=== PATIENT | male | born 1955 | race Caucasian/White ===

== ENCOUNTER → 2016-06-23 | Outpatient (CLI) | payer BC ==
[~2016-06-23] MED LIST: LIQUID POLIBAR PLUS 105% w/v 1900ML BTL As Ordered ONE
--- NOTE | 2016-06-23 17:48 | REP ---
BARIUM ENEMA AIR CONTRAST: The procedure was performed under the direct supervision of Dr. Landry. The images were reviewed with Dr. Landry. The it senior analyst film shows no organomegaly or pathological masses. The intestinal gas pattern is nonspecific. There are coils in the abdomen consistent with the patient's history of inguinal hernia repair. Liquid barium and air were instilled into the colon in a retrograde flow of the barium and air mixture. The colon is normal in position and contour. Haustration is unremarkable throughout. The colonic mucosal pattern is normal in course and caliber. There are no annular constricting lesions or polypoid masses identified. There is free flow of contrast to the cecum. The appendix is visualized. There is reflux into the terminal ileum. IMPRESSION: Essentially unremarkable double contrast barium enema. 2 minutes and 13 seconds of fluoroscopic time was utilized for this procedure. Reviewed by GRETCHEN Pratt 06/24/2016 01:47 PEdited and Signed by Dell Landry MD 06/24/2016 07:22 P
== END ==
LOC: M RAD 09:47
PROVIDERS: ATTEND Family Medicine
DX: R10.9 Unspecified abdominal pain (principal)

== ENCOUNTER → 2016-06-30 | Outpatient (CLI) | payer BC ==
[~2016-06-30] MED LIST changes: +E-Z-PAQUE 96% w/w SUSP 176GM BTL As Ordered ONE; -LIQUID POLIBAR PLUS 105% w/v 1900ML BTL As Ordered ONE
--- NOTE | 2016-06-30 14:19 | REP ---
KUB: Single view. History: Right lower abdominal pain. 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 Findings: Street Engineer view of the abdomen demonstrates high-density barium in the right lower quadrant. This may be in the cecum or distal small bowel. It is apparently retained from barium enema contrast given on June 23, 2016. Because of this finding, the small bowel follow-through study was rescheduled. Signed by Dell Landry MD 06/30/2016 04:33 P
== END ==
LOC: M RAD 08:44
PROVIDERS: ATTEND Family Medicine
DX: R10.9 Unspecified abdominal pain (principal)

== ENCOUNTER → 2016-07-07 | Outpatient (CLI) | payer BC ==
--- NOTE | 2016-07-07 11:15 | REP ---
Clinical: Lower abdominal pain Findings: Interface Engineer film of the abdomen is unremarkable. Single contrast small bowel follow-through examination demonstrates normal motility, peristalsis, and mucosal outline of the duodenum, jejunum, and ileum including terminal ileum, ileocecal valve and cecum. Total fluoroscopic time 48 seconds Impression: Normal small bowel follow-through examination. Signed by Rommel Damon MD 07/07/2016 11:07 A
== END ==
LOC: M RAD 08:43
PROVIDERS: ATTEND Family Medicine
DX: R10.9 Unspecified abdominal pain (principal)

== ENCOUNTER → 2017-04-26 | Outpatient (REF) | payer BC | LOC: M SFHCPLAZ 14:42 | PROVIDERS: ATTEND Family Medicine | DX: R39.11 Hesitancy of micturition (principal); Z87.891 Personal history of nicotine dependence | CPT/HCPCS: 36415; 80061; 83036; G0103 ==

== ENCOUNTER → 2017-05-03 | Outpatient (CLI) | payer BC ==
--- NOTE | 2017-05-03 08:36 | REP ---
Abdominal aorta ultrasound: Abdominal Aortic Measurements are as follows: Proximal 2.2 cm AP 1.9 cm TRV Renal Artery Level 1.7 cm AP 2.2 cm TRV Mid Aorta 1.7 cm AP 1.9 cm TRV Distal Aorta 1.5 cm AP 1.6 cm TRV R Iliac Artery 0.92 cm AP 0.79 cm TRV L Iliac Artery 0.89 cm AP 0.69 cm TRV There is no abdominal aortic aneurysm. Signed by Minesh Keller MD 05/03/2017 08:28 A
== END ==
LOC: M RAD 07:58
PROVIDERS: ATTEND Family Medicine
DX: Z87.891 Personal history of nicotine dependence (principal)

== ENCOUNTER → 2018-05-03 | Outpatient (CLI) | payer BC ==
[~2018-05-03] MED LIST changes: -E-Z-PAQUE 96% w/w SUSP 176GM BTL As Ordered ONE; +GASTROGRAFIN SOLUTION 30ML (Q9963) As Ordered; +ISOVUE-370 76% 100ML VIAL (Q9967) As Ordered
== END ==
LOC: M RAD 08:04
DX: R10.11 Right upper quadrant pain (principal); K40.90 Unilateral inguinal hernia, without obstruction or gangrene, not specified as recurrent
CPT/HCPCS: Q9963

== ENCOUNTER → 2019-03-22 | Outpatient (REF) | LOC: M LAB 12:08 | PROVIDERS: ATTEND Nurse Practitioner Adult Health | DX: Z02.1 Encounter for pre-employment examination (principal) ==

== ENCOUNTER → 2019-05-28 | Outpatient (CLI) | payer BC ==
[2019-05-28 09:41] LABS: HEMOGLOBIN A1c 5.3 %
[2019-05-28 09:59] LABS: ALBUMIN 3.7 GM/DL (3.2-5.2); ALT/SGPT 94 U/L (12-78); BILIRUBIN,TOTAL 0.7 MG/DL (0.2-1.0); BLOOD UREA NITROGEN 19 MG/DL (7-18); CALCIUM LEVEL 9.1 MG/DL (8.8-10.2); CARBON DIOXIDE LEVEL 29 MEQ/L (21-32); CHLORIDE LEVEL 104 MEQ/L (98-107); CHOLESTEROL LEVEL 145 MG/DL (<200); CHOLESTEROL RISK RATIO 3.085 (<5); FREE T4 1.05 NG/DL (0.76-1.46); GLOMERULAR FILTRATION RATE > 60.0 (>49); GLUCOSE, FASTING 94 MG/DL (70-100); HDL CHOLESTEROL 47 MG/DL (>40); LDL CHOLESTEROL 82 MG/DL (<100); NON-HDL-C 98 MG/DL; POTASSIUM SERUM 4.1 MEQ/L (3.5-5.1); SODIUM LEVEL 140 MEQ/L (136-145); TOTAL PROTEIN 7.5 GM/DL (6.4-8.2); TRIGLYCERIDES LEVEL 78 MG/DL (<150)
== END ==
LOC: M LAB 08:51
PROVIDERS: ATTEND Nurse Practitioner Family
DX: F41.1 Generalized anxiety disorder (principal); Z13.220 Encounter for screening for lipoid disorders; Z12.5 Encounter for screening for malignant neoplasm of prostate; Z13.1 Encounter for screening for diabetes mellitus
CPT/HCPCS: 36415; 80053; 80061; 83036; 84439; 84443; G0103

== ENCOUNTER → 2019-05-31 | Outpatient (REF) | payer BC ==
[2019-05-31 16:28] LABS: ALBUMIN 4.2 GM/DL (3.2-5.2); ALT/SGPT 114 U/L (12-78); BILIRUBIN,DIRECT 0.2 MG/DL (0.0-0.2); BILIRUBIN,TOTAL 0.6 MG/DL (0.2-1.0); RHEUMATOID FACTOR QUANT < 10.0 IU/ML (<15.0); TOTAL PROTEIN 8.1 GM/DL (6.4-8.2)
[2019-05-31 16:55] LABS: HEPATITIS B SURFACE ANTIGEN NEGATIVE (NEGATIVE)
[2019-05-31 17:23] LABS: HEPATITIS B CORE ANTIBODY IGM NEGATIVE (NEGATIVE)
[2019-05-31 17:25] LABS: HEPATITIS A ANTIBODY IGM NEGATIVE (NEGATIVE)
[2019-05-31 18:01] LABS: HEPATITIS C VIRUS ABY INDEX > 11.0 INDEX (<0.8)
== END ==
LOC: M SFHCPLAZ 13:45
PROVIDERS: ATTEND Nurse Practitioner Family
DX: R94.5 Abnormal results of liver function studies (principal); M25.50 Pain in unspecified joint

== ENCOUNTER → 2019-06-05 | Outpatient (CLI) | payer BC ==
[2019-06-05 13:43] LABS: ALBUMIN 4.3 GM/DL (3.2-5.2); ALT/SGPT 89 U/L (12-78); BILIRUBIN,TOTAL 0.6 MG/DL (0.2-1.0); BLOOD UREA NITROGEN 21 MG/DL (7-18); CALCIUM LEVEL 9.1 MG/DL (8.8-10.2); CARBON DIOXIDE LEVEL 25 MEQ/L (21-32); CHLORIDE LEVEL 106 MEQ/L (98-107); GLOMERULAR FILTRATION RATE > 60.0 (>49); GLUCOSE, FASTING 100 MG/DL (70-100); POTASSIUM SERUM 4.1 MEQ/L (3.5-5.1); SODIUM LEVEL 139 MEQ/L (136-145); TOTAL PROTEIN 7.9 GM/DL (6.4-8.2)
[2019-06-05 13:44] LABS: HEMATOCRIT 47.1 % (42.0-52.0); HEMOGLOBIN 15.4 g/dl (13.5-17.5); MEAN CORPUSCULAR HEMOGLOBIN 30.5 pg (27.0-33.0); MEAN CORPUSCULAR HGB CONC 32.7 g/dl (32.0-36.5); MEAN CORPUSCULAR VOLUME 93.3 fl (80.0-96.0); PLATELET COUNT, AUTOMATED 231 10^3/uL (150-450); RED BLOOD COUNT 5.05 10^6/uL (4.30-6.10); WHITE BLOOD COUNT 5.3 10^3/uL (4.0-10.0)
[2019-06-05 14:02] LABS: HEPATITIS B SURFACE ANTIGEN NEGATIVE (NEGATIVE)
[2019-06-05 14:03] LABS: HEPATITIS B SURFACE ANTIBODY POSITIVE (POSITIVE)
[2019-06-05 14:31] LABS: HIV 1&2 SCREEN CENTAUR NEGATIVE (NEGATIVE)
== END ==
LOC: M PLALAB 11:07
PROVIDERS: ATTEND Nurse Practitioner Family
DX: R76.8 Other specified abnormal immunological findings in serum (principal)

== ENCOUNTER → 2019-08-22 | Outpatient (REF) | payer BC ==
[2019-08-22 14:16] LABS: BILIRUBIN,DIRECT 0.2 MG/DL (0.0-0.2); BILIRUBIN,TOTAL 0.8 MG/DL (0.2-1.0); TOTAL PROTEIN 7.6 GM/DL (6.4-8.2)
== END ==
LOC: M SFHCPLAZ 11:23
PROVIDERS: ATTEND Internal Medicine Infectious Disease
DX: B18.2 Chronic viral hepatitis C (principal)

== ENCOUNTER → 2019-11-30 | Outpatient (CLI) | payer BC | LOC: M LABSMTC 09:43 | PROVIDERS: ATTEND Pediatrics | DX: Z11.59 Encounter for screening for other viral diseases (principal) | CPT/HCPCS: C9803; U0002 ==

== ENCOUNTER → 2020-01-13 | Outpatient (CLI) | payer BC ==
[2020-01-13 17:06] LABS: ALBUMIN 4.2 GM/DL (3.2-5.2); ALT/SGPT 24 U/L (12-78); BILIRUBIN,TOTAL 0.7 MG/DL (0.2-1.0); BLOOD UREA NITROGEN 23 MG/DL (7-18); CALCIUM LEVEL 9.5 MG/DL (8.8-10.2); CARBON DIOXIDE LEVEL 30 MEQ/L (21-32); CHLORIDE LEVEL 106 MEQ/L (98-107); CREATININE FOR GFR 0.85 MG/DL (0.70-1.30); GLOMERULAR FILTRATION RATE > 60.0 (>49); GLUCOSE, FASTING 91 MG/DL (70-100); POTASSIUM SERUM 4.1 MEQ/L (3.5-5.1); SODIUM LEVEL 139 MEQ/L (136-145); TOTAL PROTEIN 7.8 GM/DL (6.4-8.2)
[2020-01-16 23:07] LABS: HEPATITIS C QUANTITATION HCV Not Detected IU/mL (.)
== END ==
LOC: M PLALAB 10:36
PROVIDERS: ATTEND Internal Medicine Infectious Disease
DX: B18.2 Chronic viral hepatitis C (principal)

== ENCOUNTER → 2020-02-21 | Outpatient (REF) | payer BC ==
[2020-02-24 17:07] LABS: Lyme Disease IgG/IgM Antibodie <0.91 ISR (0.00-0.90); Lyme Disease IgM Ab Quantitati <0.80 index (0.00-0.79)
== END ==
LOC: M SFHCPLAZ 14:42
PROVIDERS: ATTEND Nurse Practitioner Family
DX: M25.50 Pain in unspecified joint (principal)

== ENCOUNTER → 2020-04-07 | Outpatient (CLI) | payer SELFPAY | LOC: M LABSMTC 11:30 | PROVIDERS: ATTEND Pediatrics | DX: Z20.828 Contact with and (suspected) exposure to other viral communicable diseases (principal) ==

== ENCOUNTER → 2020-04-28 | Outpatient (CLI) | payer SELFPAY ==
[2020-04-28 15:11] LABS: ALBUMIN 3.9 GM/DL (3.2-5.2); BILIRUBIN,DIRECT 0.1 MG/DL (0.0-0.2); BILIRUBIN,TOTAL 0.6 MG/DL (0.2-1.0)
[2020-05-01 02:07] LABS: HEPATITIS C QUANTITATION HCV Not Detected IU/mL (.)
== END ==
LOC: M PLALAB 09:29
PROVIDERS: ATTEND Internal Medicine Infectious Disease
DX: B18.2 Chronic viral hepatitis C (principal)

== ENCOUNTER → 2020-06-11 | Outpatient (CLI) | payer BC ==
--- NOTE | 2020-06-11 15:41 | REP ---
INDICATION: PAIN IN RIGHT CALF COMPARISON: None. TECHNIQUE: Real time compression and duplex Doppler interrogation of the right lower extremity deep venous system is performed. FINDINGS: The right common femoral, superficial femoral and popliteal veins are fully compressible with transducer pressure and demonstrate normal spontaneous and phasic flow, without evidence of deep venous thrombosis. IMPRESSION: No evidence of deep venous thrombosis of the right lower extremity femoral popliteal venous system. <Electronically signed by Minesh Pena > 06/11/20 1530
== END ==
LOC: M RAD 12:35
PROVIDERS: ATTEND Physician Assistant
DX: M79.661 Pain in right lower leg (principal)

== ENCOUNTER → 2020-06-26 | Outpatient (REF) | payer BC ==
[2020-06-26 11:00] LABS: ALT/SGPT 30 U/L (12-78); BILIRUBIN,TOTAL 0.6 MG/DL (0.2-1.0); BLOOD UREA NITROGEN 25 MG/DL (7-18); CALCIUM LEVEL 9.5 MG/DL (8.8-10.2); CARBON DIOXIDE LEVEL 33 MEQ/L (21-32); CHLORIDE LEVEL 104 MEQ/L (98-107); CHOLESTEROL LEVEL 163 MG/DL (<200); CHOLESTEROL RISK RATIO 3.196 (<5); CREATININE FOR GFR 0.88 MG/DL (0.70-1.30); GLOMERULAR FILTRATION RATE > 60.0 (>49); GLUCOSE, FASTING 90 MG/DL (70-100); HDL CHOLESTEROL 51 MG/DL (>40); LDL CHOLESTEROL 99 MG/DL (<100); NON-HDL-C 112 MG/DL; POTASSIUM SERUM 4.4 MEQ/L (3.5-5.1); SODIUM LEVEL 143 MEQ/L (136-145); TOTAL PROTEIN 7.3 GM/DL (6.4-8.2); TRIGLYCERIDES LEVEL 67 MG/DL (<150)
== END ==
LOC: M PLALAB 08:19
PROVIDERS: ATTEND Family Medicine
DX: E78.00 Pure hypercholesterolemia, unspecified (principal); Z12.5 Encounter for screening for malignant neoplasm of prostate

== ENCOUNTER → 2020-11-24 | Outpatient (CLI) | payer BC ==
--- NOTE | 2020-11-25 14:06 | SLEEPCENT ---
NOCTURNAL POLYSOMNOGRAPHY DATE: 11/24/2020 ORDERED BY: CLYDE Cali Nocturnal polysomnography was performed for evaluation of sleep physiology in this patient with a history of mild obstructive sleep apnea and persistent excessive somnolence. 7 hours and 31 minutes of data were reviewed. There were 296 minutes of sleep identified. Sleep latency was prolonged at 57 minutes. REM latency was normal at 71 minutes. Sleep architecture was fair with some fragmentation. There were four REM cycles noted. Overall sleep efficiency was 66.4% due to periods of wake after 2 and 3:30 a.m. The electrocardiogram showed a sinus rhythm with an average heart rate of 60 beats per minute. EEG showed reasonably normal waveforms for wake and sleep. There were only 18 respiratory events identified of 10 seconds in duration or greater for an apnea-hypopnea index of 3.6. The events that were seen were not stage related nor postural related. Arousals from respiratory events when arousals from snoring were included occurred 5.3 times per hour. There were no oxygen desaturations below 90% seen. Some activity was seen in the limb leads with only one train of 30 events. Limb movement arousal index was borderline at 6.3. IMPRESSION: Equivocal nocturnal polysomnography with respiratory patterning and snoring. RECOMMENDATION: Interventions to optimize upper air way tone may be helpful with the snoring problem.
== END ==
LOC: M SLEEP 20:00
PROVIDERS: ATTEND Nurse Practitioner Family
DX: R06.83 Snoring (principal)

== ENCOUNTER 2021-06-07 15:39 | Emergency (ER) | payer BC ==
[~2021-06-07] VITALS: Ht 165.1 cm; Wt 61.4 kg
[2021-06-07 16:06] VITALS: BP 132/75
[2021-06-07] MEDS ORDERED: AUGM875T28 PO (17:05)
[2021-06-07] MEDS ORDERED: BOOSTRIX/ADACEL VACCINE (DIPHTH/PERTUSS/ACELL/TETANUS) 0.5ML SYR IM ONE (17:05)
== END 2021-06-07 17:49 | disposition home or self-care (01) ==
LOC: M ED 15:39
DX: S81.852A Open bite, left lower leg, initial encounter (principal); W54.0XXA Bitten by dog, initial encounter; Y92.019 Unspecified place in single-family (private) house as the place of occurrence of the external cause; Y93.9 Activity, unspecified; Y99.9 Unspecified external cause status

== ENCOUNTER → 2022-10-24 | Outpatient (CLI) | payer BC ==
[~2022-10-24] MED LIST changes: +AUGM875T28 PO; -GASTROGRAFIN SOLUTION 30ML (Q9963) As Ordered; -ISOVUE-370 76% 100ML VIAL (Q9967) As Ordered
[2022-10-24 15:02] LABS: ALBUMIN 4.2 G/DL (3.2-5.2); ALKALINE PHOSPHATASE 72 U/L (46-116); ALT/SGPT 18 U/L (7.0-40); AST/SGOT 16 U/L (<34); BILIRUBIN,TOTAL 0.6 MG/DL (0.3-1.2); BLOOD UREA NITROGEN 13 MG/DL (9-23); C REACTIVE PROTEIN QUANTITATIV < 0.40 MG/DL (<1.0); CALCIUM LEVEL 8.8 MG/DL (8.3-10.6); CARBON DIOXIDE LEVEL 30 MMOL/L (20-31); CHLORIDE LEVEL 104 MMOL/L (98-107); CHOLESTEROL LEVEL 148 MG/DL (<200); CHOLESTEROL RISK RATIO 2.77 (<5); CREATININE FOR GFR 0.85 MG/DL (0.70-1.30); FREE T4 1.05 NG/DL (0.89-1.76); GLOMERULAR FILTRATION RATE > 60.0 (>49); GLUCOSE, FASTING 92 MG/DL (74-106); HDL CHOLESTEROL 53.4 MG/DL (>40); HEMATOCRIT 46.2 % (42.0-52.0); HEMOGLOBIN 15.5 g/dl (13.5-17.5); LDL CHOLESTEROL 74.8 MG/DL (<100); MEAN CORPUSCULAR HEMOGLOBIN 31.3 pg (27.0-33.0); MEAN CORPUSCULAR HGB CONC 33.5 g/dl (32.0-36.5); MEAN CORPUSCULAR VOLUME 93.3 fl (80.0-96.0); NON-HDL-C 94.6 MG/DL; PLATELET COUNT, AUTOMATED 336 10^3/uL (150-450); POTASSIUM SERUM 4.1 MMOL/L (3.5-5.1); RED BLOOD COUNT 4.95 10^6/uL (4.30-6.10); SODIUM LEVEL 139 MMOL/L (136-145); THYROID STIMULATING HORMONE 1.861 uIU/ML (0.55-4.78); TOTAL 25(OH) VITAMIN D 45.3 NG/ML (20.0-100.0); TOTAL PROTEIN 7.1 G/DL (5.7-8.2); TRIGLYCERIDES LEVEL 99 MG/DL (<150); VITAMIN B12 LEVEL 648 PG/ML (211-911); WHITE BLOOD COUNT 7.2 10^3/uL (4.0-10.0)
[2022-10-24 15:13] LABS: CREATININE, URINE 12.7 MG/DL; MALB URINE SIEMENS < 3.0 MG/L; MAU/CREAT RATIO 23.6 MCG/MG (0.0-30.0)
[2022-10-24 15:32] LABS: HEMOGLOBIN A1c 5.1 % (4.0-6.0)
== END ==
LOC: M PLALAB 11:05
PROVIDERS: ATTEND Internal Medicine Hematology
DX: Z13.1 Encounter for screening for diabetes mellitus (principal); Z12.5 Encounter for screening for malignant neoplasm of prostate
CPT/HCPCS: 36415; 80053; 80061; 82043; 82306; 82607; 83036; 83525; 84439; 84443; 85027; 86140; G0103

== ENCOUNTER → 2023-01-30 | Outpatient (CLI) | payer BC, SELFPAY | LOC: M ONCM 16:56 | PROVIDERS: ATTEND General Practice | DX: Z12.5 Encounter for screening for malignant neoplasm of prostate (principal) ==

== ENCOUNTER → 2023-06-08 | Outpatient (CLI) | payer OTHER, BC | LOC: M RAD 12:33 | PROVIDERS: ATTEND Surgery | DX: R10.31 Right lower quadrant pain (principal) ==

== ENCOUNTER → 2023-08-14 | Outpatient (CLI) | payer BC | LOC: M PLAIMG 11:05 | PROVIDERS: ATTEND Nurse Practitioner Family | DX: M25.511 Pain in right shoulder (principal); M19.011 Primary osteoarthritis, right shoulder ==

== ENCOUNTER → 2023-09-08 | Outpatient (REF) | LOC: M EMP 13:31 | PROVIDERS: ATTEND Family Medicine | DX: Z01.89 Encounter for other specified special examinations (principal) ==

== ENCOUNTER 2023-09-13 10:39 | Outpatient (RCR) | payer BC | END 2023-09-19 | LOC: M PT 10:39 | PROVIDERS: ATTEND Orthopaedic Surgery | DX: M25.511 Pain in right shoulder (principal) ==

== ENCOUNTER 2023-09-27 10:39 | Outpatient (RCR) | payer BC | END 2023-10-20 | LOC: M PT 10:39 | PROVIDERS: ATTEND Orthopaedic Surgery | DX: M25.511 Pain in right shoulder (principal) ==

== ENCOUNTER → 2023-10-03 | Outpatient (CLI) | payer BC ==
[2023-10-03 13:46] LABS: BASO # 0.1 10^3/uL (0.0-0.2); BASO % 0.6 % (0.0-1.0); EOS # 0.1 10^3/uL (0.0-0.5); EOS % 0.6 % (0.0-3.0); HEMATOCRIT 43.7 % (42.0-52.0); HEMOGLOBIN 14.8 g/dl (13.5-17.5); LYMPH # 0.5 10^3/uL (1.5-5.0); LYMPH % 5.2 % (24.0-44.0); MEAN CORPUSCULAR HEMOGLOBIN 31.2 pg (27.0-33.0); MEAN CORPUSCULAR HGB CONC 33.9 g/dl (32.0-36.5); MEAN CORPUSCULAR VOLUME 92.2 fl (80.0-96.0); MONO % 9.8 % (2.0-8.0); NEUTROPHILS # 8.4 10^3/uL (1.5-8.5); NEUTROPHILS % 83.3 % (36.0-66.0); PLATELET COUNT, AUTOMATED 329 10^3/uL (150-450); RED BLOOD COUNT 4.74 10^6/uL (4.30-6.10); WHITE BLOOD COUNT 10.1 10^3/uL (4.0-10.0)
[2023-10-03 13:50] LABS: ALBUMIN 4.1 G/DL (3.2-5.2); ALKALINE PHOSPHATASE 68 U/L (46-116); ALT/SGPT 22 U/L (7.0-40); AST/SGOT 26 U/L (<34); BILIRUBIN,TOTAL 1.3 MG/DL (0.3-1.2); BLOOD UREA NITROGEN 15 MG/DL (9-23); CALCIUM LEVEL 9.4 MG/DL (8.3-10.6); CARBON DIOXIDE LEVEL 28 MMOL/L (20-31); CHLORIDE LEVEL 103 MMOL/L (98-107); CHOLESTEROL LEVEL 155 MG/DL (<200); CHOLESTEROL RISK RATIO 2.81 (<5); CREATININE FOR GFR 0.86 MG/DL (0.70-1.30); GLOMERULAR FILTRATION RATE > 60.0 (>49); GLUCOSE, FASTING 100 MG/DL (74-106); HDL CHOLESTEROL 55.1 MG/DL (>40); LDL CHOLESTEROL 90.3 MG/DL (<100); NON-HDL-C 99.9 MG/DL; POTASSIUM SERUM 4.2 MMOL/L (3.5-5.1); PSA SCREENING 1.52 NG/ML (< 4.00); SODIUM LEVEL 138 MMOL/L (136-145); TOTAL PROTEIN 6.9 G/DL (5.7-8.2); TRIGLYCERIDES LEVEL 48 MG/DL (<150)
[2023-10-03 13:52] LABS: VITAMIN B12 LEVEL 704 PG/ML (211-911)
[2023-10-03 13:53] LABS: THYROID STIMULATING HORMONE 0.783 uIU/ML (0.55-4.78); TOTAL 25(OH) VITAMIN D 28.9 NG/ML (20.0-100.0)
[2023-10-03 14:06] LABS: CREATININE, URINE 117.5 MG/DL
[2023-10-03 14:07] LABS: MAU/CREAT RATIO 2.5 MCG/MG (0.0-30.0)
== END ==
LOC: M PLALAB 09:30
PROVIDERS: ATTEND Internal Medicine Hematology
DX: Z13.1 Encounter for screening for diabetes mellitus (principal); Z12.5 Encounter for screening for malignant neoplasm of prostate
CPT/HCPCS: 36415; 80053; 80061; 82043; 82306; 82607; 83036; 83525; 84439; 84443; 85025; 86140; G0103

== ENCOUNTER 2023-11-08 07:21 | Day surgery (SDC) | payer BC ==
[~2023-11-08] VITALS: Ht 165.1 cm; Wt 57.2 kg
[~2023-11-08 07:21] MED LIST changes: +NS 1,000 ML IV ONE; +propofoL 200 MG/20 ML VIAL As Ordered ONE
[2023-11-08] MEDS ORDERED: LACTATED RINGER'S 500 ML IV ONE (08:05)
[2023-11-08 08:41] VITALS: TEMP 98.1
[2023-11-08 08:58] VITALS: BP 131/75; O2SAT 98
== END 2023-11-08 09:07 | disposition home or self-care (01) ==
LOC: M OPP 07:21
PROVIDERS: ATTEND Surgery
DX: Z12.11 Encounter for screening for malignant neoplasm of colon (principal); Z80.0 Family history of malignant neoplasm of digestive organs; K64.0 First degree hemorrhoids; K57.30 Diverticulosis of large intestine without perforation or abscess without bleeding; Z86.19 Personal history of other infectious and parasitic diseases; Z87.891 Personal history of nicotine dependence

== ENCOUNTER → 2024-01-11 | Outpatient (CLI) | payer BC ==
[~2024-01-11] MED LIST changes: -NS 1,000 ML IV ONE; -propofoL 200 MG/20 ML VIAL As Ordered ONE
[2024-01-11 10:32] LABS: HEMATOCRIT 44.7 % (42.0-52.0); HEMOGLOBIN 15.1 g/dl (13.5-17.5); MEAN CORPUSCULAR HEMOGLOBIN 31.3 pg (27.0-33.0); MEAN CORPUSCULAR HGB CONC 33.8 g/dl (32.0-36.5); MEAN CORPUSCULAR VOLUME 92.7 fl (80.0-96.0); PLATELET COUNT, AUTOMATED 309 10^3/uL (150-450); RED BLOOD COUNT 4.82 10^6/uL (4.30-6.10); WHITE BLOOD COUNT 6.3 10^3/uL (4.0-10.0)
[2024-01-11 11:03] LABS: C REACTIVE PROTEIN QUANTITATIV < 0.40 MG/DL (<1.0)
[2024-01-11 11:05] LABS: ALBUMIN 4.2 G/DL (3.2-5.2); ALKALINE PHOSPHATASE 62 U/L (46-116); ALT/SGPT 18 U/L (7.0-40); AST/SGOT 20 U/L (<34); BILIRUBIN,DIRECT 0.2 MG/DL (<0.4); BILIRUBIN,TOTAL 0.7 MG/DL (0.3-1.2)
== END ==
LOC: M PLALAB 08:55
PROVIDERS: ATTEND Internal Medicine Hematology
DX: B18.2 Chronic viral hepatitis C (principal)

== ENCOUNTER → 2024-02-08 | Outpatient (CLI) | payer BC | LOC: M RAD 08:58 | PROVIDERS: ATTEND Internal Medicine Hematology | DX: B18.2 Chronic viral hepatitis C (principal) ==

== ENCOUNTER → 2024-02-22 | Outpatient (CLI) | payer BC | LOC: M PLAIMG 09:56 | PROVIDERS: ATTEND Internal Medicine Hematology | DX: J44.9 Chronic obstructive pulmonary disease, unspecified (principal) ==

== ENCOUNTER → 2024-06-21 | Outpatient (CLI) | payer BC ==
[2024-06-21 11:37] LABS: BASO # 0.1 10^3/uL (0.0-0.2); BASO % 1.4 % (0.0-1.0); EOS # 0.4 10^3/uL (0.0-0.5); EOS % 5.2 % (0.0-3.0); HEMATOCRIT 45.6 % (42.0-52.0); HEMOGLOBIN 15.2 g/dl (13.5-17.5); LYMPH # 2.5 10^3/uL (1.5-5.0); LYMPH % 35.5 % (24.0-44.0); MEAN CORPUSCULAR HEMOGLOBIN 30.9 pg (27.0-33.0); MEAN CORPUSCULAR HGB CONC 33.3 g/dl (32.0-36.5); MEAN CORPUSCULAR VOLUME 92.7 fl (80.0-96.0); MONO # 0.8 10^3/uL (0.0-0.8); MONO % 11.3 % (2.0-8.0); NEUTROPHILS # 3.2 10^3/uL (1.5-8.5); NEUTROPHILS % 46.5 % (36.0-66.0); PLATELET COUNT, AUTOMATED 356 10^3/uL (150-450); RED BLOOD COUNT 4.92 10^6/uL (4.30-6.10); WHITE BLOOD COUNT 6.9 10^3/uL (4.0-10.0)
[2024-06-21 12:05] LABS: C REACTIVE PROTEIN QUANTITATIV < 0.50 MG/DL (<1.0)
[2024-06-21 12:06] LABS: ALKALINE PHOSPHATASE 64 U/L (40-129); ALT/SGPT 24 U/L (7.0-40); AST/SGOT 27 U/L (<34); BILIRUBIN,TOTAL 1.1 MG/DL (0.3-1.2); BLOOD UREA NITROGEN 18 MG/DL (9-23); CALCIUM LEVEL 9.2 MG/DL (8.3-10.6); CARBON DIOXIDE LEVEL 30 MMOL/L (20-31); CHLORIDE LEVEL 102 MMOL/L (98-107); CREATININE FOR GFR 0.84 MG/DL (0.70-1.30); GLOMERULAR FILTRATION RATE > 60.0 (>49); GLUCOSE, FASTING 94 MG/DL (74-106); POTASSIUM SERUM 4.3 MMOL/L (3.5-5.1); SODIUM LEVEL 141 MMOL/L (136-145)
== END ==
LOC: M PLALAB 08:37
PROVIDERS: ATTEND Internal Medicine Hematology
DX: B18.2 Chronic viral hepatitis C (principal)

== ENCOUNTER → 2024-07-12 | Outpatient (CLI) | payer BC ==
[2024-07-12 11:49] LABS: BASO # 0.1 10^3/uL (0.0-0.2); BASO % 0.8 % (0.0-1.0); EOS # 0.3 10^3/uL (0.0-0.5); EOS % 5.2 % (0.0-3.0); HEMATOCRIT 45.4 % (42.0-52.0); HEMOGLOBIN 15.1 g/dl (13.5-17.5); LYMPH % 32.5 % (24.0-44.0); MEAN CORPUSCULAR HEMOGLOBIN 30.9 pg (27.0-33.0); MEAN CORPUSCULAR HGB CONC 33.3 g/dl (32.0-36.5); MEAN CORPUSCULAR VOLUME 92.8 fl (80.0-96.0); MONO # 0.7 10^3/uL (0.0-0.8); MONO % 10.8 % (2.0-8.0); NEUTROPHILS # 3.1 10^3/uL (1.5-8.5); NEUTROPHILS % 50.4 % (36.0-66.0); PLATELET COUNT, AUTOMATED 350 10^3/uL (150-450); RED BLOOD COUNT 4.89 10^6/uL (4.30-6.10); WHITE BLOOD COUNT 6.2 10^3/uL (4.0-10.0)
[2024-07-12 12:07] LABS: HEMOGLOBIN A1c 5.1 % (4.0-6.0)
[2024-07-12 12:24] LABS: ALBUMIN 3.9 G/DL (3.2-5.2); ALKALINE PHOSPHATASE 68 U/L (40-129); ALT/SGPT 22 U/L (7.0-40); AST/SGOT 24 U/L (<34); BILIRUBIN,TOTAL 0.9 MG/DL (0.3-1.2); BLOOD UREA NITROGEN 17 MG/DL (9-23); CALCIUM LEVEL 9.2 MG/DL (8.3-10.6); CARBON DIOXIDE LEVEL 29 MMOL/L (20-31); CHLORIDE LEVEL 104 MMOL/L (98-107); CHOLESTEROL LEVEL 165 MG/DL (<200); CHOLESTEROL RISK RATIO 2.66 (<5); CREATININE FOR GFR 0.84 MG/DL (0.70-1.30); GLOMERULAR FILTRATION RATE > 60.0 (>49); GLUCOSE, FASTING 90 MG/DL (74-106); HDL CHOLESTEROL 61.8 MG/DL (>40); LDL CHOLESTEROL 90.8 MG/DL (<100); NON-HDL-C 103.2 MG/DL; POTASSIUM SERUM 4.3 MMOL/L (3.5-5.1); SODIUM LEVEL 141 MMOL/L (136-145); TOTAL PROTEIN 6.9 G/DL (5.7-8.2); TRIGLYCERIDES LEVEL 62 MG/DL (<150)
== END ==
LOC: M PLALAB 09:08
PROVIDERS: ATTEND Family Medicine
DX: K76.0 Fatty (change of) liver, not elsewhere classified (principal); Z86.19 Personal history of other infectious and parasitic diseases; F17.211 Nicotine dependence, cigarettes, in remission

== ENCOUNTER 2024-12-06 10:46 | Emergency (ER) | payer BC ==
[~2024-12-06] VITALS: Ht 165.1 cm; Wt 59.5 kg
[2024-12-06 11:34] LABS: BASO # 0.1 10^3/uL (0.0-0.2); BASO % 1.7 % (0.0-1.0); EOS # 0.2 10^3/uL (0.0-0.5); EOS % 3.7 % (0.0-3.0); LYMPH # 1.8 10^3/uL (1.5-5.0); LYMPH % 27.4 % (24.0-44.0); MONO # 0.6 10^3/uL (0.0-0.8); MONO % 9.2 % (2.0-8.0); NEUTROPHILS # 3.8 10^3/uL (1.5-8.5); NEUTROPHILS % 57.5 % (36.0-66.0); PLATELET COUNT, AUTOMATED 334 10^3/uL (150-450)
[2024-12-06] MEDS ORDERED: ISOVUE-370 76% 100 ML VIAL As Ordered ONE (11:43)
[2024-12-06 11:50] LABS: INR 1.09
[2024-12-06 11:55] LABS: CALCIUM LEVEL 9.8 MG/DL (8.3-10.6); CARBON DIOXIDE LEVEL 32 MMOL/L (20-31); CHLORIDE LEVEL 99 MMOL/L (98-107); CREATININE FOR GFR 0.87 MG/DL (0.70-1.30); GLOMERULAR FILTRATION RATE > 90.0 (>49); MAGNESIUM LEVEL 2.1 MG/DL (1.8-2.4); POTASSIUM SERUM 3.9 MMOL/L (3.5-5.1); SODIUM LEVEL 141 MMOL/L (136-145)
[2024-12-06] MEDS: NS (Normal Saline) 0.9% 1,000 ML IV ONE (11:58)
[2024-12-06 12:01] LABS: CK-MB VALUE MASS 5.1 NG/ML (<3.6)
[2024-12-06 12:02] LABS: CPK CREATINE PHOSPHOKINASE 124 U/L (46-171); MB/CK RELATIVE INDEX 4.11 (< OR =4)
[2024-12-06 13:40] LABS: CK-MB VALUE MASS 4.1 NG/ML (<3.6)
[2024-12-06 13:41] LABS: CPK CREATINE PHOSPHOKINASE 102 U/L (46-171); MB/CK RELATIVE INDEX 4.01 (< OR =4)
[2024-12-06] MEDS ORDERED: GING500C2 PO (15:02)
[2024-12-06] MEDS ORDERED: ZINC25CA2 PO (15:02)
[2024-12-06] MEDS ORDERED: LORA-1041 PO (15:02)
[2024-12-06] MEDS ORDERED: SELE200T10 PO (15:02)
[2024-12-06] MEDS ORDERED: VITA180C2 PO (15:02)
[2024-12-06] MEDS ORDERED: D 1010004 PO (15:02)
[2024-12-06] MEDS ORDERED: ASCO250T20 PO (15:02)
[2024-12-06] MEDS ORDERED: TUMERIC PO (15:02)
[2024-12-06] MEDS ORDERED: VITATAB73 PO (15:02)
[2024-12-06] MEDS ORDERED: HOME MED LIST COMPLETE! XX SCH (15:05)
[2024-12-06 15:15] VITALS: BP 125/72; TEMP 97.3; O2SAT 98
[2024-12-06] MEDS ORDERED: ASPI81TA26 PO (15:22)
== END 2024-12-06 15:32 | disposition home or self-care (01) ==
LOC: M ED 10:46
DX: H81.4 Vertigo of central origin (principal); R00.1 Bradycardia, unspecified; Z79.1 Long term (current) use of non-steroidal anti-inflammatories (NSAID); Z79.899 Other long term (current) drug therapy
CPT/HCPCS: 70450; 70496; 70498; 70551; 71045; 80047; 80048; 82550; 82553; 83735; 84484; 85025; 85610; 85730; 93005; 93041; 94760; 96360; 96361; 99285; Q9967

== ENCOUNTER → 2024-12-21 | Outpatient (CLI) | payer BC ==
[~2024-12-21] MED LIST changes: +ASCO250T20 PO; +ASPI81TA26 PO; +D 1010004 PO; +GING500C2 PO; +LORA-1041 PO; +SELE200T10 PO; +TUMERIC PO; +VITA180C2 PO; +VITATAB73 PO; +ZINC25CA2 PO
== END ==
LOC: M RAD 22:05
PROVIDERS: ATTEND Family Medicine
DX: Z53.9 Procedure and treatment not carried out, unspecified reason (principal)